=== PATIENT | male | born 1975 | race Hispanic/Latino ===

== ENCOUNTER 2018-03-24 | Emergency (ER) | payer SELFPAY ==
[~2018-03-24] VITALS: Ht 167.6 cm; Wt 74.8 kg
[2018-03-24] MEDS ORDERED: TETANUS/DIPHTHERIA TOX ADULT 0.5 ML SYR IM ONE (00:30)
--- NOTE | 2018-03-24 00:51 | Diagnostic Imaging Report ---
Exam: PA and lateral view of the chest Indication: Left lateral chest laceration Comparison: None Findings: No consolidations, pleural effusions or pneumothorax. The heart is within normal size limits. No acute bone findings. No radiopaque foreign bodies. Old right lateral ninth rib fracture. Impression: No acute cardiothoracic abnormality. No radiopaque foreign body. Signed by: Dr. Courtney Larson M.D. on 03/24/2018 12:47 AM
[2018-03-24 01:14] VITALS: BP 158/90
== END 2018-03-24 01:28 | disposition home or self-care (01) ==
LOC: FSED
DX: S21.112A Laceration without foreign body of left front wall of thorax without penetration into thoracic cavity, initial encounter (principal); W18.02XA Striking against glass with subsequent fall, initial encounter; Y92.008 Other place in unspecified non-institutional (private) residence as the place of occurrence of the external cause
CPT/HCPCS: 71046; 90471; 90714; 99283